=== PATIENT | male | born 1970 | race Caucasian/White ===

== ENCOUNTER 2017-10-14 09:45 | Emergency (ER) | payer OTHER ==
[2017-10-14 09:53] VITALS: BMI 32.4
[2017-10-14] MEDS ORDERED: morphine CARPU-JECT 4 MG/1 ML DISP.SYRIN IVPUSH ONE ×3 (10:17→11:20)
[2017-10-14] MEDS ORDERED: ONDANSETRON 4 MG/2 ML VIAL IVPUSH ONE (10:17)
[2017-10-14] MEDS ORDERED: SODIUM CHLORIDE 0.9% 500 ML INFUS.BAG IV ONE (10:17)
--- NOTE | 2017-10-14 10:18 | PDOC ---
History of Present Illness <Guilherme Enamorado - Last Filed: 10/14/17 13:34> - History of Present Illness Initial Comments: 10/14/17 10:19 47-year-old male with a history of insulin-dependent diabetes, hypertension, hyperlipidemia, smoking presents emergency Department with 3 days of hematuria and sudden onset right-sided flank pain this morning. Patient has no history of kidney stones. Denies fevers. Reports chills and mild nausea. Denies any headache, weakness, numbness, lower extremity edema. Was in his usual state of health prior to hematuria starting 3 days ago. Reports his urine has been pink since then. Patient saw his primary physician and not be on Thursday and was given nitrofurantoin for presumed UTI which she has been taking. <Tiera Thompson - Last Filed: 10/14/17 14:18> - General Chief Complaint: Pain, Acute Stated Complaint: BACK PAIN/ URINATING BLOOD Time Seen by Provider: 10/14/17 10:16 Past History <Guilherme Enamorado - Last Filed: 10/14/17 13:34> - Past Medical History COPD: No Diabetes: Yes - Suicide/Smoking/Psychosocial Hx Smoking History: Former smoker Have you smoked in the past 12 months: Yes Number of Cigarettes Smoked Daily: 20 If you are a former smoker, when did you quit?: 3 months Information on smoking cessation initiated: No 'Breaking Loose' booklet given: 10/11/13 Hx Alcohol Use: Yes (occ) Drug/Substance Use Hx: No Hx Substance Use Treatment: No <Tiera Thompson - Last Filed: 10/14/17 14:18> - Past Medical History Allergies/Adverse Reactions: Allergies Allergy/AdvReac Type Severity Reaction Status Date / Time No Known Drug Allergies AdvReac Verified 10/14/17 09:53 Home Medications: Ambulatory Orders Ramipril [Altace] 2.5 mg PO DAILY 10/11/13 metFORMIN HCL [Glucophage] 500 mg PO BID 10/11/13 Aspirin 81 mg PO DAILY 10/14/17 Atorvastatin Ca [Lipitor] 10 mg PO HS 10/14/17 Insulin Degludec [Tresiba Flextouch U-200] 200 unit SQ 10/14/17 Insulin Lispro [Humalog] 100 unit SQ 10/14/17 Multivitamin/Iron/Folic Acid [Centrum Adults Tablet] 1 each PO DAILY 10/14/17 [place]-3 Fatty Acids [[place]-3] 1,000 mg PO DAILY 10/14/17 Varenicline Tartrate [Chantix] 1 mg PO DAILY 10/14/17 Review of Systems - Review of Systems Comments:: 10/14/17 10:20 GENERAL/CONSTITUTIONAL: No fever +chills. No weakness. HEAD, EYES, EARS, NOSE AND THROAT: No change in vision. No ear pain or discharge. No sore throat. GASTROINTESTINAL: +nausea, no vomiting, diarrhea or constipation. +flank pain GENITOURINARY: No dysuria, frequency. +hematuria CARDIOVASCULAR: No chest pain or shortness of breath. RESPIRATORY: No cough, wheezing, or hemoptysis. MUSCULOSKELETAL: No joint or muscle swelling or pain. No neck or back pain. SKIN: No rash NEUROLOGIC: No headache, vertigo, loss of consciousness, or change in strength/ sensation. ENDOCRINE: No increased thirst. No abnormal weight change. HEMATOLOGIC/LYMPHATIC: No anemia, easy bleeding, or history of blood clots. ALLERGIC/IMMUNOLOGIC: No hives or skin allergy. <Tiera Thompson - Last Filed: 10/14/17 14:18> *Physical Exam - Vital Signs Last Vital Signs Temp Pulse Resp BP Pulse Ox 99 F 52 L 18 160/80 97 10/14/17 09:49 10/14/17 09:49 10/14/17 09:49 10/14/17 09:49 10/14/17 09:49 <Guilherme Enamorado - Last Filed: 10/14/17 13:34> - Vital Signs Last Vital Signs Temp Pulse Resp BP Pulse Ox 99 F 52 L 18 160/80 97 10/14/17 09:49 10/14/17 09:49 10/14/17 09:49 10/14/17 09:49 10/14/17 09:49 - Physical Exam Comments: 10/14/17 10:21 GENERAL: Awake, alert, and fully oriented, uncomfortable and pacing in the ED HEAD: No signs of trauma EYES: PERRLA, EOMI, sclera anicteric, conjunctiva clear ENT: Auricles normal inspection, hearing grossly normal, nares patent, oropharynx clear without exudates. Moist mucosa NECK: Normal ROM, supple, no lymphadenopathy, JVD, or masses LUNGS: Breath sounds equal, clear to auscultation bilaterally. No wheezes, and no crackles HEART: Regular rate and rhythm, normal S1 and S2, no murmurs, rubs or gallops ABDOMEN: Soft, nontender, normoactive bowel sounds. No guarding, no rebound. No masses. +R CVAT EXTREMITIES: Normal range of motion, no edema. No clubbing or cyanosis. No cords, erythema, or tenderness NEUROLOGICAL: Normal speech, cranial nerves intact, negative pronator drift, 5/ 5 strength in all 4 extremities, normal sensation to light touch in all 4 extremities, normal cerebellar exam, normal gait, normal reflexes and tone SKIN: Warm, Dry, normal turgor, no rashes or lesions noted. <Tiera Thompson - Last Filed: 10/14/17 14:18> ED Treatment Course - LABORATORY CBC & Chemistry Diagram: 10/14/17 10:40 10/14/17 10:40 - ADDITIONAL ORDERS Additional order review: Laboratory Results 10/14/17 10/14/17 10:40 10:40 Sodium 133 L Potassium 4.7 Chloride 100 Carbon Dioxide 22 Anion Gap 11 BUN 15 Creatinine 1.1 D Creat Clearance w eGFR > 60 Random Glucose 461 H* D Calcium 9.1 Total Bilirubin 0.6 D AST 70 H D ALT 65 D Alkaline Phosphatase 189 H D Total Protein 7.1 Albumin 4.1 Urine Color Yellow Urine Appearance Slcloudy Urine pH 5.0 Ur Specific [place] 1.031 Urine Protein 1+ H Urine Glucose (UA) 3+ H Urine Ketones Negative Urine Blood 3+ H Urine Nitrite Negative Urine Bilirubin Negative Urine Urobilinogen Negative Ur Leukocyte Esterase Negative Urine WBC (Auto) None Urine RBC (Auto) 2409 10/14/17 10:40 RBC 5.52 MCV 82.8 MCHC 33.7 RDW 13.5 MPV 11.3 H Neutrophils % 60.2 Lymphocytes % 25.2 D Monocytes % 10.8 H Eosinophils % 2.9 Basophils % 0.9 - Medications Given in the ED: ED Medications Discontinued Medications Generic Name Dose Route Start Last Admin Trade Name Freq PRN Reason Stop Dose Admin Insulin Human Regular 5 units 10/14/17 11:20 10/14/17 12:25 Novolin R Vial *For Ivpush Or Iv Drip Only* SQ 10/14/17 11:21 5 unit ONCE ONE Administration Ketorolac Tromethamine 30 mg 10/14/17 13:00 10/14/17 13:05 Toradol Injection - IVPUSH 10/14/17 13:01 30 mg ONCE ONE Administration Morphine Sulfate 4 mg 10/14/17 10:17 10/14/17 10:35 Morphine Injection - IVPUSH 10/14/17 10:18 4 mg ONCE ONE Administration Morphine Sulfate 4 mg 10/14/17 10:48 10/14/17 10:55 Morphine Injection - IVPUSH 10/14/17 10:49 4 mg ONCE ONE Administration Morphine Sulfate 2 mg 10/14/17 11:20 10/14/17 11:36 Morphine Injection - IVPUSH 10/14/17 11:21 2 mg ONCE ONE Administration Ondansetron HCl 4 mg 10/14/17 10:17 10/14/17 10:36 Zofran Injection IVPUSH 10/14/17 10:18 4 mg ONCE ONE Administration Sodium Chloride 1,000 ml 10/14/17 10:17 10/14/17 10:36 Normal Saline - IV 10/14/17 10:18 1,000 ml ONCE ONE Administration <Guilherme Enamorado - Last Filed: 10/14/17 13:34> - LABORATORY CBC & Chemistry Diagram: 10/14/17 10:40 10/14/17 10:40 <Tiera Thompson - Last Filed: 10/14/17 14:18> Medical Decision Making - Medical Decision Making 10/14/17 13:34 Call made to , awaiting call back. <Guilherme Enamorado - Last Filed: 10/14/17 13:34> - Medical Decision Making 10/14/17 10:22 47-year-old male with multiple medical problems presents emergency Department with 3 days of hematuria and now 1 day of right-sided flank pain. Vitals unremarkable. Exam with right flank pain. Likely renal colic. We'll obtain labs , urinalysis, non-con CT scan, give pain medication/fluids and reassess. 10/14/17 13:05 Patient required 10 mg morphine total for pain control. Labs unremarkable. Urinalysis with blood but no evidence of infection. CT scan with left-sided 4 mm UVJ obstructing stone. Will give Toradol and reassess. We'll also consult urology given stone is obstructing. Given prolonged length of stay, will put the patient on ED observation in case we cannot control his pain. 10/14/17 14:04 Patient feels significantly better after Toradol. Case discussed with Dr. Colón from urology, he recommended that if patient's pain is well controlled that he can follow-up with him in the office in the morning. Patient requests discharge home, is clinically stable. Case discussed in detail with admitting physician including history, physical exam and ancillary studies. Admitting physician has assumed care for the patient, will follow all pending diagnostics and will complete the evaluation and treatment. <Tiera Thompson - Last Filed: 10/14/17 14:18> *DC/Admit/Observation/Transfer <Guilherme Enamorado - Last Filed: 10/14/17 13:34> - Discharge Dispostion Admit: No - Attestations Physician Attestion: 10/14/17 14:18 I, Dr. Tiera Thompson MD, attest that this document has been prepared under my direction and personally reviewed by me in its entirety. I further attest, that it accurately reflects all work, treatment, procedures and medical decision -making performed by me. <Tiera Thompson - Last Filed: 10/14/17 14:18> Diagnosis at time of Disposition: Renal colic on right side - Discharge Dispostion Disposition: HOME Condition at time of disposition: Stable - Referrals Referrals: Helder Jack MD [Primary Care Provider] - Satish Burnette MD., MD [Staff Physician] - - Patient Instructions Printed Discharge Instructions: Kidney Stones -- Adult Additional Instructions: Call Dr. Satish Burnette's office today to confirm your appointment tomorrow morning, he is expecting you. Take Motrin 600 mg every 6 hours as needed for pain. If Motrin is not adequately controlling her pain, you may take a Percocet for breakthrough pain. Return to the emergency department if you have any new, worsening or concerning symptoms.
[2017-10-14] MEDS ORDERED: MORPHINE SULFATE 10 MG/1 ML *VIAL ONE ×3 (10:26→11:35)
[2017-10-14] MEDS ORDERED: ONDANSETRON 4 MG/2 ML VIAL ONE (10:27)
[2017-10-14 10:50] LABS: BASO % 0.9 % (0-2.0); EOS % 2.9 % (0-4.5); HEMATOCRIT 45.7 % (35.4-49); HEMOGLOBIN 15.4 GM/dL (11.7-16.9); LYMPH % 25.2 % (8-40); MCH 27.9 pg (25.7-33.7); MCHC 33.7 g/dl (32.0-35.9); MEAN CELL VOLUME 82.8 fl (80-96); MEAN PLT VOLUME 11.3 fl (7.5-11.1); MONO % 10.8 % (3.8-10.2); NEUT % 60.2 % (42.8-82.8); PLATELET COUNT 139 K/MM3 (134-434); RBC 5.52 M/mm3 (4.00-5.60); RDW 13.5 % (11.9-15.9); WHITE BLOOD COUNT 6.5 K/mm3 (4.0-10.0)
[2017-10-14 11:15] LABS: ALBUMIN 4.1 g/dl (3.4-5.0); ANION GAP 11 (8-16); BILIRUBIN,TOTAL 0.6 mg/dL (0.2-1.0); BLOOD UREA NITROGEN 15 mg/dL (7-18); CALCIUM 9.1 mg/dL (8.5-10.1); CHLORIDE 100 mmol/L (98-107); CO2 22 mmol/L (21-32); CREATININE 1.1 mg/dL (0.7-1.3); POTASSIUM 4.7 mmol/L (3.5-5.1); SGOT/AST 70 U/L (15-37); SGPT/ALT 65 U/L (12-78); SODIUM 133 mmol/L (136-145); TOT PROT 7.1 g/dl (6.4-8.2)
[2017-10-14 11:16] LABS: ALK PHOS 189 U/L (45-117)
[2017-10-14 11:17] LABS: GLUCOSE,RANDOM 461 mg/dL (74-106)
[2017-10-14 11:19] LABS: URINE APPEARANCE SLCLOUDY; URINE BILIRUBIN NEGATIVE (NEGATIVE); URINE BLOOD 3+ (NEGATIVE); URINE COLOR YELLOW; URINE GLUCOSE (UA) 3+ (NEGATIVE); URINE KETONE NEGATIVE (NEGATIVE); URINE LEUK ESTERASE NEGATIVE (NEGATIVE); URINE NITRITE NEGATIVE (NEGATIVE); URINE UROBILINOGEN NEGATIVE mg/dL (0.2-1.0)
[2017-10-14] MEDS ORDERED: INSULIN REGULAR HUMAN 100 UNITS/ML *VIAL SQ ONE (11:20)
[2017-10-14 11:37] LABS: URINE PROTEIN 1+ (NEGATIVE)
[2017-10-14] MEDS ORDERED: INSULIN REGULAR HUMAN 100 UNITS/ML *VIAL ONE (12:24)
[2017-10-14] MEDS ORDERED: SODIUM CHLORIDE 1,000 ML IV STA (13:00)
[2017-10-14] MEDS ORDERED: KETOROLAC TROMETHAMINE 15 MG/ML VIAL IVPUSH ONE (13:00)
[2017-10-14] MEDS ORDERED: KETOROLAC TROMETHAMINE 30 MG/1 ML VIAL ONE (13:02)
[2017-10-14 14:07] VITALS: BP 128/62; PULSE 74; TEMP 98.3
== END 2017-10-14 14:37 | disposition home or self-care (01) ==
LOC: JER 09:45 → JERBED 13:07 → UNDOADMOB 13:07 → JER 14:37
PROC: 3E033NZ Introduction of Analgesics, Hypnotics, Sedatives into Peripheral Vein, Percutaneous Approach (ICD-10-PCS; principal; 2017-10-14)
PROC: 3E0337Z Introduction of Electrolytic and Water Balance Substance into Peripheral Vein, Percutaneous Approach (ICD-10-PCS; 2017-10-14)
PROC: 3E033GC Introduction of Other Therapeutic Substance into Peripheral Vein, Percutaneous Approach (ICD-10-PCS; 2017-10-14)
PROC: 3E033GC Introduction of Other Therapeutic Substance into Peripheral Vein, Percutaneous Approach (ICD-10-PCS; 2017-10-14)
PROC: 3E0333Z Introduction of Anti-inflammatory into Peripheral Vein, Percutaneous Approach (ICD-10-PCS; 2017-10-14)
PROC: 3E013VG Introduction of Insulin into Subcutaneous Tissue, Percutaneous Approach (ICD-10-PCS; 2017-10-14)
DX: N13.2 Hydronephrosis with renal and ureteral calculous obstruction (principal); I10 Essential (primary) hypertension; E11.9 Type 2 diabetes mellitus without complications; Z79.84 Long term (current) use of oral hypoglycemic drugs; E78.00 Pure hypercholesterolemia, unspecified; Z87.891 Personal history of nicotine dependence
CPT/HCPCS: 36415; 74176-TC; 80053; 81003; 81015; 85025; 87086; 99282-25

== ENCOUNTER 2018-04-14 08:05 | Day surgery (SDC) | payer OTHER ==
[2018-04-13 11:07] VITALS: BMI 30.7
[2018-04-14] MEDS ORDERED: ROPIVACAINE HCL 0.5% 30ML VIAL ONE (09:46)
[2018-04-14] MEDS ORDERED: MIDAZOLAM HCL 2 MG/2 ML SINGLE DOSE VIAL ONE ×2 (10:07)
[2018-04-14] MEDS ORDERED: DEXAMETHASONE SOD PHOSPHATE/PF 10 MG/ML SDV ONE (10:08)
--- NOTE | 2018-04-14 10:22 | HP ---
Satellite [facility] - Chief Complaint Chief Complaint: right shoulder pain - Past Medical History Allergies/Adverse Reactions: Allergies Allergy/AdvReac Type Severity Reaction Status Date / Time No Known Drug Allergies AdvReac Verified 04/13/18 10:55 - Current Medications Current Medications: Home Medications Medication Instructions Recorded Ramipril [Altace] 2.5 mg PO DAILY 10/11/13 metFORMIN HCL [Glucophage] 500 mg PO BID 10/11/13 Aspirin 81 mg PO DAILY 10/14/17 Insulin Degludec [Tresiba 200 unit SQ 10/14/17 Flextouch U-200] Insulin Lispro [Humalog] 10 unit SQ 10/14/17 Multivitamin/Iron/Folic Acid 1 each PO DAILY 10/14/17 [Centrum Adults Tablet] [place]-3 Fatty Acids [[place]-3] 1,000 mg PO DAILY 10/14/17 Rosuvastatin [Crestor -] 5 mg PO DAILY 04/13/18 Oxycodone HCl/Acetaminophen 1 - 2 tab PO Q6H #30 tab MDD 6 04/14/18 [Percocet 5-325 mg Tablet] Satellite Physical Exam - Physical Examination Vital Signs: Vital Signs Period Temp Pulse Resp BP Sys/Guerra Pulse Ox Last 24 Hr 97.7 F-97.7 F 67-67 20-20 134-134/83-83 97 General Appearance: Well Nourished, Well Developed, Alert & Oriented x3 ENT: Clear Lung: Normal air movement Heart: Regular rate & rhythm Extremities: Other (right shoulder- + ttp, decr rom, + neer, + empty can, + apprehension, nvi MRI + partial rct, labral tear) Neurological: Intact, Alert, Oriented Satellite Impression/Plan - Impression/Plan Impression: right shoulder rct, labral tear Operative Procedure: right shoulder athroscopy with SAD, possible RCR and labral repair Date to be Performed: 04/14/18
[2018-04-14] MEDS ORDERED: PROPOFOL 20 ML ONE ×4 (10:34→11:04)
[2018-04-14] MEDS ORDERED: LIDOCAINE HCL/PF 2% SDV 5ML VIAL ONE (10:35)
[2018-04-14] MEDS ORDERED: ceFAZolin SODIUM 1 GM VIAL IVPB ONE (11:11)
[2018-04-14] MEDS ORDERED: ceFAZolin SODIUM 1 GM VIAL ONE (11:15)
--- NOTE | 2018-04-14 11:56 | OP ---
Operative Note - Note: Operative Date: 04/14/18 ([facility]) Pre-Operative Diagnosis: right shoulder rct Operation: right shoulder arthroscopy with RCR Implants: 2 swivelocks Post-Operative Diagnosis: Same as Pre-op Surgeon: Parth Worthy Snagger: Guilherme Bullock Anesthesiologist/ACID CONDITIONER: Moisés Loaiza Anesthesia: Local, MAC Specimens Removed: shavings Estimated Blood Loss (mls): 5 Operative Report Dictated: Yes
[2018-04-14] MEDS ORDERED: ONDANSETRON 4 MG/2 ML VIAL IVPUSH PRN (12:07)
[2018-04-14] MEDS ORDERED: MEPERIDINE HCL CARPU-JECT 25 MG/1 ML DISP.SYRIN ONE (12:15)
[2018-04-14] MEDS ORDERED: LACTATED RINGERS SOLUTION 1,000 ML IV SCH (12:15)
[2018-04-14 12:34] VITALS: TEMP 97.5
[2018-04-14] MEDS ORDERED: MEPERIDINE HCL CARPU-JECT 25 MG/1 ML DISP.SYRIN IVPUSH ONE (14:00)
[2018-04-14 14:30] VITALS: BP 115/61; PULSE 75
--- NOTE | 2018-04-14 16:09 | OP ---
DATE OF OPERATION: 04/14/2018 PREOPERATIVE DIAGNOSIS: Right rotator cuff tear. POSTOPERATIVE DIAGNOSIS: Right rotator cuff tear. PROCEDURE: Arthroscopy right shoulder subacromial decompression and right rotator cuff repair arthroscopically and manipulation under anesthesia. SURGICAL ATTENDING: Darline Worthy MD ARCHERY INSTRUCTOR: VIVI Coulter ANESTHESIA: Regional and general. CLOSURE: A sutured tape and SwiveLocks for rotator cuff and 3-0 nylon for skin. ESTIMATED BLOOD LOSS: Negligible. COMPLICATIONS: None. CONDITION: To the recovery room in stable condition. DESCRIPTION OF PROCEDURE: The patient was taken to the operating room on April 14, 2018. Regional and general anesthesia was administered by the anesthesiologist. IV Kefzol was administered prophylactically prior to the case. The patient was fastened to the shoulder table in the beach chair position with all prominences well padded. The right shoulder area was prepped and draped in the usual sterile fashion. First, a manipulation under anesthesia was performed which restored complete range of motion and some tearing was felt with the range of motion activity breaking up scar tissue. Next the arthroscopy was performed. The posterior portal was made 2 fingerbreadths below the acromion with a 15 blade followed by a blunt trocar. Circumferential examination of the glenohumeral joint revealed the following: Intact glenoid and humeral head articular cartilage, intact labrum circumferentially, intact biceps and biceps anchor, intact subscapularis through its insertion, and no loose bodies in the axillary pouch. There was some synovitis around but mild. Looking superiorly, the rotator cuff was found to have a crescent tear. The fluid was drained from the shoulder and the trocar was removed. The posterior trocar was redirected in the subacromial space and an accessory lateral portal was made with a 15 blade followed by a blunt trocar. Large amounts of subacromial inflammation was encountered which was debrided using the shaver and the ArthroCare device. There was minimal spurring on the undersurface of the acromion so no burring was needed to be performed; however, soft tissue was debrided as well as the coracoacromial ligament was identified, detached and the anterior acromion was visualized throughout and it was further debrided. There was a large amount of soft tissue encapsulating the humeral head. This was debrided with the shaver exposing the rotator cuff beneath. The rotator cuff was found to have a crescent tear anteriorly. The greater tuberosity was cleaned with a leslee then slightly burred to the bleeding surface. Multiple horizontal mattress sutures with suture tape were placed using the [employer] self-retrieving suture punch. One set of stitches were anteriorly and one posteriorly. The sutures were fixated to the greater tuberosity using 2 SwiveLocks in the more lateral position. This allowed the rotator cuff to sit flushed down on the bleeding surface of the greater tuberosity. Sutures were flushed with the bone. Range of motion revealed good clearance in the subacromial space and no undue tension on the repair. The patient was awoken from anesthesia and transferred to recovery room in stable condition. There were no complications. Prior to waking the portals were closed with 3-0 nylon and a sterile pressure was applied followed by a shoulder immobilizer. DARLINE WORTHY M.D. VERONICA/[id number]
--- NOTE | 2018-04-15 15:11 | PATH ---
Surgical Pathology Report Patient Name: FOX GUADARRAMA Med. Rec. #: [id number] /Age/Gender: 1970 (Age: 47) / M Account: [id number] Location: [facility] SURGICAL Taken: 04/14/2018 Received: 04/14/2018 Reported: 04/15/2018 Physicians: Parth Worthy M.D. Specimen(s) Received RIGHT SHOULDER SHAVINGS Clinical History Right shoulder tear Final Diagnosis SHOULDER SHAVINGS, RIGHT, ARTHROSCOPY: FRAGMENTS OF BENIGN CARTILAGE, DENSE FIBROCONNECTIVE TISSUE, ADIPOSE TISSUE, SYNOVIUM, AND SKELETAL MUSCLE. Electronically Signed Sunshine Macdonald M.D. Gross Description Received in formalin, labeled "right shoulder shavings," is a 2.5 x 2.4 x 0.3 cm. aggregate of george-yellow soft tissue fragments. A claim representative portion is submitted in one cassette. /04/14/2018 [place]04/14/2018
== END 2018-04-14 14:35 | disposition home or self-care (01) ==
LOC: JASU-SURG 08:05
PROVIDERS: ATTEND Orthopaedic Surgery
PROC: 0RNJ4ZZ Release Right Shoulder Joint, Percutaneous Endoscopic Approach (ICD-10-PCS; 2018-04-14)
PROC: 0RSJXZZ Reposition Right Shoulder Joint, External Approach (ICD-10-PCS; 2018-04-14)
PROC: 0LQ14ZZ Repair Right Shoulder Tendon, Percutaneous Endoscopic Approach (ICD-10-PCS; principal; 2018-04-14 09:30)
DX: M75.101 Unspecified rotator cuff tear or rupture of right shoulder, not specified as traumatic (principal)
CPT/HCPCS: 82962; 88304-TC; 94760

== ENCOUNTER 2022-10-28 11:50 | Emergency (ER) | payer OTHER ==
[2022-10-28 12:05] VITALS: RESP 18; BMI 29.9
[2022-10-28] MEDS ORDERED: KETOROLAC TROMETHAMINE 30 MG/1 ML VIAL IVPUSH ONE (12:16)
[2022-10-28] MEDS ORDERED: SODIUM CHLORIDE 1,000 ML IV ONE (12:16)
[2022-10-28] MEDS ORDERED: KETOROLAC TROMETHAMINE 30 MG/1 ML VIAL ONE (12:38)
[2022-10-28 12:47] LABS: HEMATOCRIT 48.5 % (35.4-49); HEMOGLOBIN 17.2 G/dL (11.7-16.9); MCH 30.1 pg (25.7-33.7); MCHC 35.4 g/dl (32.0-35.9); MEAN CELL VOLUME 84.9 fl (80-96); MEAN PLT VOLUME 11.5 fl (7.5-11.1); PLATELET COUNT 142.5 10^3/uL (134-434); RBC 5.71 10^6/uL (4.00-5.60); RDW 13.9 % (11.9-15.9); WHITE BLOOD COUNT 6.8 10^3/uL (4.0-10.8)
[2022-10-28 12:54] LABS: ALBUMIN 4.1 g/dl (3.4-5.0); BILIRUBIN,TOTAL 0.7 mg/dl (0.2-1); CALCIUM 9.5 mg/dl (8.5-10); CREATININE 0.6 mg/dl (0.55-1.3); TOT PROT 7.1 g/dl (6.4-8.2)
[2022-10-28 13:20] LABS: PLATELET ESTIMATE ADEQUATE
[2022-10-28 15:22] VITALS: BP 138/72; PULSE 78; TEMP 98.2
== END 2022-10-28 15:22 | disposition home or self-care (01) ==
LOC: FER 11:50
PROC: 3E0333Z Introduction of Anti-inflammatory into Peripheral Vein, Percutaneous Approach (ICD-10-PCS; principal; 2022-10-28)
PROC: 3E0337Z Introduction of Electrolytic and Water Balance Substance into Peripheral Vein, Percutaneous Approach (ICD-10-PCS; 2022-10-28)
DX: R10.30 Lower abdominal pain, unspecified (principal)
CPT/HCPCS: 36415; 74176-TC; 80053; 81003; 85027; 99284-25

== ENCOUNTER 2025-01-05 17:26 | Emergency (ER) | payer OTHER ==
[2025-01-05 17:53] VITALS: BP 122/73; PULSE 71; RESP 18; TEMP 97.5; BMI 26.6
== END 2025-01-05 18:46 | disposition home or self-care (01) ==
LOC: FER 17:26
DX: R31.9 Hematuria, unspecified (principal)
CPT/HCPCS: 81003; 87086; 99283-25